=== PATIENT | male | born 1980 | race Two or more races ===

== ENCOUNTER 2020-10-10 21:05 | Emergency (ER) | payer MEDICAID ==
[~2020-10-10] VITALS: Ht 185.4 cm; Wt 87.0 kg
[2020-10-10 21:58] LABS: MICROSCOPIC NOT IND
--- NOTE | 2020-10-10 23:46 | NUR ---
pt to room from lobby
[2020-10-11] MEDS ORDERED: BICILLIN-LA 2,400,000 UNITS/4 ML IM ONE (00:30)
[2020-10-11 00:49] VITALS: BP 148/99
--- NOTE | 2020-10-11 00:50 | NUR ---
TAMERA RN: PT DISCHARGD FOR PRIMARY RN.
== END 2020-10-11 00:50 | disposition home or self-care (01) ==
LOC: ED 21:35
DX: A53.9 Syphilis, unspecified (principal); R21 Rash and other nonspecific skin eruption
CPT/HCPCS: 36415; 81003; 86592; 86780; 87491; 87591; 96372; 99283; J0561

== ENCOUNTER 2020-10-23 17:57 | Emergency (ER) | payer MEDICAID ==
--- NOTE | 2020-10-23 18:52 | NUR ---
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
--- NOTE | 2020-10-23 19:17 | NUR ---
PRECISION MARKET INSIGHTS: NO ANSWER AT THIS TIME.
--- NOTE | 2020-10-23 19:35 | NUR ---
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 PTP ASSUMED TO HAVE LEFT. ASSEMBLY LEAD PERSON AWARE.
== END 2020-10-23 19:36 | disposition left against medical advice (07) ==
LOC: ED 18:27
DX: R21 Rash and other nonspecific skin eruption (principal); Z53.21 Procedure and treatment not carried out due to patient leaving prior to being seen by health care provider